=== PATIENT | male | born 1955 ===

== ENCOUNTER 2021-05-08 09:22 | Inpatient (IN) | payer SELFPAY ==
[2021-05-08] MEDS ORDERED: ALBUTEROL 2.5 MG/3 ML NEBU IH ONE (10:05)
[2021-05-08] MEDS ORDERED: predniSONE 20 MG TAB PO ONE (10:05)
[2021-05-08] MEDS ORDERED: IPRATROPIUM 0.02% NEBU 2.5 ML IH ONE (10:05)
--- NOTE | 2021-05-08 10:24 | Emergency Department Report ---
HPI - General Chief Complaint: Dyspnea/Respdistress Time Seen by Provider: 05/08/21 09:52 - HPI HPI: Room 36 Patient is a 65-year-old male present with a chief complaint of shortness of breath. The patient states for the past 2 weeks he had a cough has been nonproductive as well as shortness of breath and wheezing. Patient denies loss of sense of taste or smell. Patient denies history of fever or rhinorrhea. Patient states he has not been vaccinated against Covid. Patient denies any known sick contact ED Past Medical Hx - Past Medical History Previous Medical History?: Yes Additional medical history: COUGH - Surgical History Past Surgical History?: Yes Additional Surgical History: VASECTOMY, THYROIDECTOMY - Family History Family history: no significant - Social History Smoking Status: Current Every Day Smoker (1 pack/day) Substance Use Type: None (Denies illicit drug use) ED Review of Systems ROS: Stated complaint: COUGH WITH SOB Other details as noted in HPI Constitutional: denies: fever Eyes: denies: eye pain ENT: denies: throat pain Respiratory: cough, shortness of breath Cardiovascular: denies: chest pain Endocrine: no symptoms reported Gastrointestinal: denies: abdominal pain Genitourinary: denies: dysuria Musculoskeletal: myalgia Neurological: denies: headache Physical Exam - Physical Exam Vital Signs: Vital Signs 05/08/21 09:43 Temperature 98.2 F Pulse Rate 59 L Respiratory 24 Rate Blood Pressure 139/76 [Right] O2 Sat by Pulse 94 Oximetry Physical Exam: GENERAL: The patient is well-developed well-nourished male lying on stretcher not appearing to be in acute distress. [] HEENT: Normocephalic. Atraumatic. Extraocular motions are intact. Patient has moist mucous membranes. NECK: Supple. Trachea midline CHEST/LUNGS: Diminished. There is no respiratory distress noted. HEART/CARDIOVASCULAR: Regular. There is no tachycardia. There is no gallop rub or murmur. ABDOMEN: Abdomen is soft, nontender. Patient has normal bowel sounds. There is no abdominal distention. SKIN: There is no rash. There is no edema. There is no diaphoresis. NEURO: The patient is awake, alert, and oriented. The patient is cooperative. The patient has no focal neurologic deficits. The patient has normal speech. GCS 15 MUSCULOSKELETAL: There is no evidence of acute injury. ED Course Vital Signs 05/08/21 09:43 Temperature 98.2 F Pulse Rate 59 L Respiratory 24 Rate Blood Pressure 139/76 [Right] O2 Sat by Pulse 94 Oximetry ED Medical Decision Making - Lab Data Result diagrams: 05/08/21 11:11 05/08/21 11:11 Laboratory Tests 05/08/21 05/08/21 11:11 11:11 WBC 15.7 H RBC 4.88 Hgb 17.1 H Hct 51.0 H MCV 105 H MCH 35 H MCHC 34 RDW 13.0 L Plt Count 366 Lymph % (Auto) 13.0 L [place] % (Auto) 9.6 H Eos % (Auto) 0.6 Baso % (Auto) 0.9 Lymph # (Auto) 2.0 [place] # (Auto) 1.5 H Eos # (Auto) 0.1 Baso # (Auto) 0.1 Seg Neutrophils % 75.9 H Seg Neutrophils # 11.9 H Sodium 137 Potassium 3.7 Chloride 99.7 Carbon Dioxide 24 Anion Gap 17 BUN 7 L Creatinine 0.8 Estimated GFR > 60 BUN/Creatinine Ratio 9 Glucose 98 Calcium 9.1 - Radiology Data Radiology results: report reviewed (Chest x-ray), image reviewed (Chest x-ray) interpreted by me: Chest x-ray-left lung haziness, questionable left lower lobe infiltrate. No pneumothorax [address] [address] XRay Report Signed Patient: LINDY SLOAN MR#: [id number] : 1955 Acct:[id number] Age/Sex: 65 / M ADM Date: 05/08/21 Loc: ED Attending Dr: Ordering Physician: SONAL CHEUNG MD Date of Service: 05/08/21 Procedure(s): XR chest 1V ap Accession Number(s): [id number] cc: SONAL CHEUNG MD Fluoro Time In Minutes: CHEST 1 VIEW INDICATION / CLINICAL INFORMATION: Cough, shortness of breath. COMPARISON: None available. FINDINGS: SUPPORT DEVICES: None. HEART / MEDIASTINUM: No significant abnormality. LUNGS / PLEURA: No significant pulmonary or pleural abnormality. No pneumothorax. ADDITIONAL FINDINGS: No significant additional findings. IMPRESSION: 1. No acute findings. Signer Name: Chris Valentine MD Signed: 05/08/2021 10:34 AM Workstation Name: [id number] Transcribed By: SB Dictated By: CHRIS VALENTINE MD Electronically Authenticated By: CHRIS VALENTINE MD Signed Date/Time: 05/08/211033 DD/ 33 TD/TT: Print Cancel - Medical Decision Making Patient desatted to 93% on room air initially. Patient was placed on supplemental O2 was found to have an SPO2 between 91-93% on 3 L nasal cannula. Will admit the patient to the hospital for further treatment - Differential Diagnosis Reactive airway disease, COPD, asthma, pneumonia, Covid Critical care attestation.: If time is entered above; I have spent that time in minutes in the direct care of this critically ill patient, excluding procedure time. ED Disposition Clinical Impression: Pneumonia, Hypoxia, Suspected COVID-19 virus infection Disposition: ADMITTED INPATIENT Is pt being admited?: Yes Does the pt Need Aspirin: No Condition: Fair Instructions: Bacterial Pneumonia (ED) Referrals: PRIMARY CARE, [Primary Care Provider] - 3-5 Days Time of Disposition: 12:22 (Hospitalist called (Dr. Kumar))
--- NOTE | 2021-05-08 10:38 | XRay Report ---
CHEST 1 VIEW INDICATION / CLINICAL INFORMATION: Cough, shortness of breath. COMPARISON: None available. FINDINGS: SUPPORT DEVICES: None. HEART / MEDIASTINUM: No significant abnormality. LUNGS / PLEURA: No significant pulmonary or pleural abnormality. No pneumothorax. ADDITIONAL FINDINGS: No significant additional findings. IMPRESSION: 1. No acute findings. Signer Name: Chris Valentine MD Signed: 05/08/2021 10:34 AM Workstation Name: [id number]
[2021-05-08 11:38] LABS: BUN/Creatinine Ratio 9; Blood Urea Nitrogen 7 mg/dL (9-20); Calcium 9.1 mg/dL (8.4-10.2); Hemolysis Index 25
[2021-05-08 12:06] LABS: Basophils # (Auto) 0.1 K/mm3 (0.0-0.1); Basophils % (Auto) 0.9 % (0.0-1.8); Eosinophils # (Auto) 0.1 K/mm3 (0.0-0.4); Eosinophils % (Auto) 0.6 % (0.0-4.3); Hemoglobin 17.1 gm/dl (11.8-15.2); Mean Corpuscular HGB Conc 34 % (32-34); Mean Corpuscular Volume 105 fl (84-94); Monocytes # (Auto) 1.5 K/mm3 (0.0-0.8); Monocytes % (Auto) 9.6 % (0.0-7.3); Red Blood Count 4.88 M/mm3 (3.65-5.03)
[2021-05-08 12:08] LABS: Platelet Count 366 K/mm3 (140-440)
[2021-05-08] MEDS ORDERED: AZITHROMYCIN/NS 500 MG/250 ML 500 MG/250 ML BAG IV ONE (12:20)
[2021-05-08] MEDS ORDERED: cefTRIAXone/NS 1 GM/50 ML 1 GM/50 ML BAG IV ONE (12:20)
--- NOTE | 2021-05-08 12:33 | History and Physical Report ---
History of Present Illness Chief complaint: I cant breathe, and I have been coughing for weeks History of present illness: 65 YO Male with Nicotine Dependence presents to ED for evaluation. Patient reports "I feel sick and I am coughing". Patient states that he has experienced shortness of breath, dry cough, muscle aches, fatigue, weakness, subjective fever, decreased exercise tolerance over the past 2 weeks with worsening symptoms over the past 5 days. Patient transported to [facility] via private vehicle for further care and evaluation of the aforementioned symptoms. Patient seen and evaluated in the emergency department. All lab and imaging studies reviewed. Patient found to have a pulse oximetry of 88% on room air with exertion which is consistent with acute hypoxemic respiratory failure. Chest x- ray revealed bilateral pneumonia complicated by sepsis. Patient admitted to medical floor and initiated on sepsis protocol as well as coronavirus protocol. Patient knowledges fever. Patient denies chills, chest pain, palpitation, skin rash, recent ill contacts, or known exposure to COVID-19. No prior admission for review. No medication listed at time of mission for reconciliation. Patient is not vaccinated against COVID-19. Past History Past Medical History: other (See HPI) Past Surgical History: Other (Vasectomy, thyroidectomy) Social history: , smoking. denies: alcohol abuse, prescription drug abuse Family history: hypertension Medications and Allergies Allergies Allergy/AdvReac Type Severity Reaction Status Date / Time No Known Allergies Allergy Unverified 05/08/21 09:40 Home Medications Medication Instructions Recorded Confirmed Last Taken Type No Known Home Medications [No 05/08/21 05/08/21 Unknown History Reported Home Medications] Active Meds: Active Medications Azithromycin (Zithromax/Ns) 500 mg in 250 mls @ 250 mls/hr IV ONCE ONE; Protocol Stop: 05/08/21 13:19 Last Admin: 05/08/21 12:31 Dose: 250 mls/hr Documented by: Ceftriaxone Sodium (Rocephin/Ns 1 Gm/50 Ml) 1 gm in 50 mls @ 100 mls/hr IV ONCE ONE; Protocol Stop: 05/08/21 12:49 Last Admin: 05/08/21 12:31 Dose: 100 mls/hr Documented by: Review of Systems Constitutional: fever, fatigue, weakness, malaise Ears, nose, mouth and throat: no ear pain, no decreased hearing, no nose pain Cardiovascular: no chest pain, no orthopnea, no palpitations, no edema, no syncope Respiratory: cough, cough with sputum, shortness of breath, no excessive sputum, no hemoptysis, no dyspnea on exertion Gastrointestinal: no abdominal pain, no nausea, no vomiting, no diarrhea Genitourinary Male: no hematuria, no flank pain, no discharge, no urinary frequency, no urinary hesitancy Rectal: no pain, no incontinence, no bleeding Musculoskeletal: no neck stiffness, no neck pain, no low back pain, no shooting leg pain Integumentary: no rash, no pruritis, no redness, no sores, no wounds, no jaundice Neurological: no head injury, no paralysis, no parathesias, no numbness, no tingling, no seizures, no syncope Psychiatric: no anxiety, no memory loss, no change in sleep habits, no insomnia, no hypersomnia, no change in appetite, no change in libido, no suicidal ideation Endocrine: no cold intolerance, no polyphagia, no excessive thirst, no polydipsia, no polyuria, no excessive sweating Hematologic/Lymphatic: no easy bruising, no easy bleeding, no lymphedema Allergic/Immunologic: no urticaria, no allergic rhinitis Exam - Constitutional Vitals: Temp Pulse Resp BP Pulse Ox 98.9 F 114 H 18 128/63 93 05/08/21 12:01 05/08/21 12:01 05/08/21 12:01 05/08/21 12:01 05/08/21 12:01 General appearance: Present: mild distress - EENT Eyes: Present: PERRL ENT: hearing intact, clear oral mucosa - Neck Neck: Present: supple, normal ROM - Respiratory Respiratory effort: labored, accessory muscle use Respiratory: bilateral: diminished, rhonchi - Cardiovascular Heart Sounds: Present: S1 & S2. Absent: rub, click - Extremities Extremities: pulses symmetrical, No edema Peripheral Pulses: abnormal (Capillary refill greater than 3.5 seconds) - Abdominal General gastrointestinal: Present: soft, non-tender, non-distended, normal bowel sounds Male genitourinary: Present: normal - Integumentary Integumentary: Present: clear, warm, dry - Musculoskeletal Musculoskeletal: generalized weakness - Psychiatric Psychiatric: appropriate mood/affect, intact judgment & insight - Neurologic Neurologic: CNII-XII intact, moves all extremities Results - Labs CBC & Chem 7: 05/08/21 11:11 05/08/21 12:33 Labs: Abnormal lab results 05/08/21 05/08/21 Range/Units 11:11 11:11 WBC 15.7 H (4.5-11.0) K/mm3 Hgb 17.1 H (11.8-15.2) gm/dl Hct 51.0 H (35.5-45.6) % MCV 105 H (84-94) fl MCH 35 H (28-32) pg RDW 13.0 L (13.2-15.2) % Lymph % (Auto) 13.0 L (13.4-35.0) % [place] % (Auto) 9.6 H (0.0-7.3) % [place] # (Auto) 1.5 H (0.0-0.8) K/mm3 Seg Neutrophils % 75.9 H (40.0-70.0) % Seg Neutrophils # 11.9 H (1.8-7.7) K/mm3 BUN 7 L (9-20) mg/dL Assessment and Plan - Patient Problems (1) Sepsis Current Visit: Yes Status: Acute Plan to address problem: Sepsis protocol: Chest x-ray, CBC, urinalysis, IV antibiotic therapy, reyes pplemental oxygen, pulse oximetry, IV fluid resuscitation therapy, maintain mean arterial pressure greater than or equal to 65, serial lactic acid level, monitor fluid balance, blood culture. (2) Acute hypoxemic respiratory failure Current Visit: Yes Status: Acute Plan to address problem: Chest x-ray, supplemental oxygen, pulse oximetry, nebulizer therapy, supportive care. Will consider high flow supplemental oxygen if patient is unable to maintain pulse oximetry with supplemental oxygen via nasal cannula. (3) Nicotine dependence Current Visit: Yes Status: Acute Qualifiers: Nicotine product type: cigarettes Substance use status: in withdrawal Qualified Code(s): F17.213 - Nicotine dependence, cigarettes, with withdrawal Plan to address problem: Smoking cessation counseling, supportive care, behavior change counseling, +15 minutes. (4) COVID-19 vaccination not done Current Visit: Yes Status: Acute Plan to address problem: Patient counseled regarding COVID-19 vaccination. Patient acknowledges understanding instructions. (5) Pneumonia Current Visit: Yes Status: Acute Plan to address problem: Pneumonia protocol: Chest x-ray, CBC, CMP, supplemental oxygen, pulse oximetry, nebulizer therapy, IV antibiotic therapy. (6) Suspected COVID-19 virus infection Current Visit: Yes Status: Acute Plan to address problem: COVID-19 protocol: Supplemental oxygen, pulse oximetry, IV steroid therapy, IV antibiotic therapy, vitamin C therapy, vitamin D therapy, zinc therapy (7) DVT prophylaxis Current Visit: Yes Status: Acute Plan to address problem: SCD to bilateral lower extremities while in bed, prophylactic anticoagulation (8) Advance care planning Current Visit: Yes Status: Acute Plan to address problem: Disease education conducted, care plan discussed, diagnoses discussed, prognosis discussed, patient is full code. Patient informed of diagnosis and treatment care plan. Patient acknowledges understanding and agreement with care plan, +30 minutes.
[2021-05-08] MEDS ORDERED: ALBUTEROL 2.5 MG/3 ML NEBU IH PRN (12:51)
[2021-05-08] MEDS ORDERED: HYDROmorphone 1 MG/1 ML INJ IV PRN ×2 (12:51)
[2021-05-08] MEDS ORDERED: ONDANSETRON 4 MG/2 ML INJ IV PRN (12:51)
[2021-05-08] MEDS ORDERED: ACETAMINOPHEN 325 MG TAB PO PRN ×2 (12:51)
[2021-05-08] MEDS ORDERED: SODIUM CHLORIDE 0.9% 1000 ML IV SOLN IV ONE (13:00)
[2021-05-08] MEDS: oxyCODONE /ACETAMINOPHEN 5-325MG TAB PO PRN (16:06)
[2021-05-08] MEDS: guaiFENesin 100 MG/5 ML ORAL LIQD PO PRN (16:07)
[2021-05-08] MEDS ORDERED: traZODone 50 MG TAB PO ONE (21:14)
[2021-05-08] MEDS: methylPREDNISolone Sod Succinate 40 MG/1 ML INJ IV SCH (21:54)
[2021-05-08] MEDS: NICOTINE 21 MG/24 HR PATCH TD SCH (21:55)
[2021-05-08] MEDS: ZINC SULFATE 220 MG CAP PO SCH (21:55)
[2021-05-08] MEDS: ASCORBIC ACID 500 MG TAB PO SCH (21:55)
[2021-05-08] MEDS: FAMOTIDINE 10 MG TAB PO SCH (21:56)
[2021-05-08] MEDS: HEPARIN 5,000 UNIT/1 ML VIAL SUB-Q SCH ×2 (21:56→22:04)
[2021-05-09] MEDS: guaiFENesin 100 MG/5 ML ORAL LIQD PO PRN ×2 (01:26→22:01)
[2021-05-09] MEDS: methylPREDNISolone Sod Succinate 40 MG/1 ML INJ IV SCH ×3 (05:56→22:01)
[2021-05-09 08:18] LABS: Basophils # (Auto) 0.3 K/mm3 (0.0-0.1); Basophils % (Auto) 2.5 % (0.0-1.8); Hematocrit 46.6 % (35.5-45.6); Hemoglobin 15.3 gm/dl (11.8-15.2); Lymphocytes # (Auto) 0.9 K/mm3 (1.2-5.4); Lymphocytes % (Auto) 7.5 % (13.4-35.0); Mean Corpuscular HGB Conc 33 % (32-34); Mean Corpuscular Volume 105 fl (84-94); Monocytes # (Auto) 0.5 K/mm3 (0.0-0.8); Monocytes % (Auto) 4.4 % (0.0-7.3); Platelet Count 345 K/mm3 (140-440); Red Blood Count 4.45 M/mm3 (3.65-5.03); Red Cell Distribution Width 12.7 % (13.2-15.2)
[2021-05-09 08:39] LABS: Alanine Aminotransferase 11 units/L (7-56); Blood Urea Nitrogen 12 mg/dL (9-20); Hemolysis Index 16
[2021-05-09 08:46] LABS: BUN/Creatinine Ratio 17
[2021-05-09] MEDS: NICOTINE 21 MG/24 HR PATCH TD SCH (10:00)
[2021-05-09] MEDS: HEPARIN 5,000 UNIT/1 ML VIAL SUB-Q SCH ×3 (10:08→22:08)
[2021-05-09] MEDS: ZINC SULFATE 220 MG CAP PO SCH ×2 (10:08→22:01)
[2021-05-09] MEDS: CHOLECALCIFEROL (VIT D3) 1000 UNIT (25 mcg) TAB PO SCH (10:08)
[2021-05-09] MEDS: FAMOTIDINE 10 MG TAB PO SCH ×2 (10:09→22:01)
[2021-05-09] MEDS: ASCORBIC ACID 500 MG TAB PO SCH ×2 (10:10→22:01)
--- NOTE | 2021-05-09 12:23 | Progress Note ---
Assessment and Plan Assessment and Plan - Patient Problems (1) Sepsis Current Visit: Yes Status: Acute Plan to address problem: Sepsis protocol: Chest x-ray, CBC, urinalysis, IV antibiotic therapy, supplemental oxygen, pulse oximetry, IV fluid resuscitation therapy, maintain mean arterial pressure greater than or equal to 65, serial lactic acid level, monitor fluid balance, blood culture. (2) Acute hypoxemic respiratory failure Current Visit: Yes Status: Acute Plan to address problem: Chest x-ray, supplemental oxygen, pulse oximetry, nebulizer therapy, supportive care. Will consider high flow supplemental oxygen if patient is unable to maintain pulse oximetry with supplemental oxygen via nasal cannula. I (3) Pneumonia Current Visit: Yes Status: Acute Plan to address problem: Pneumonia protocol: Chest x-ray, CBC, CMP, supplemental oxygen, pulse oximetry, nebulizer therapy, IV antibiotic therapy. (4) Nicotine dependence Current Visit: Yes Status: Acute Qualifiers: Nicotine product type: cigarettes Substance use status: in withdrawal Qualified Code(s): F17.213 - Nicotine dependence, cigarettes, with withdrawal Plan to address problem: Smoking cessation counseling, supportive care, behavior change counseling, +15 minutes. (5) COVID-19 vaccination not done Current Visit: Yes Status: Acute Plan to address problem: Covid test done today but pending (6) Suspected COVID-19 virus infection Current Visit: Yes Status: Acute Plan to address problem: Covid test done today but pending On supplemental oxygen and IV Decadron Remdesivir if positive (7) DVT prophylaxis Current Visit: Yes Status: Acute Plan to address problem: SCD to bilateral lower extremities while in bed, prophylactic anticoagulation Subjective Date of service: 05/09/21 Principal diagnosis: Bilateral pneumonia Interval history: 65 YO Male with Nicotine Dependence presents to ED for evaluation. Patient reports "I feel sick and I am coughing". Patient states that he has experienced shortness of breath, dry cough, muscle aches, fatigue, weakness, subjective fever, decreased exercise tolerance over the past 2 weeks with worsening symptoms over the past 5 days. Patient transported to [facility] via private vehicle for further care and evaluation of the aforementioned symptoms. Patient seen and evaluated in the emergency department. All lab and imaging studies reviewed. Patient found to have a pulse oximetry of 88% on room air with exertion which is consistent with acute hypoxemic respiratory failure. Chest x- ray revealed bilateral pneumonia complicated by sepsis. Patient admitted to medical floor and initiated on sepsis protocol as well as coronavirus protocol. Patient knowledges fever. Patient denies chills, chest pain, palpitation, skin rash, recent ill contacts, or known exposure to COVID-19. No prior admission for review. No medication listed at time of mission for reconciliation. Patient is not vaccinated against COVID-19. 05/09/2021 Patient still wheezing and short of breath On 2 L nasal cannula oxygen Covid test pending Objective - Constitutional Vitals: Vital Signs - 12hr 05/09/21 05/09/21 05/09/21 01:33 02:00 05:55 Temperature 98.0 F Pulse Rate 83 Pulse Rate [ 107 H Anterior Bilateral Throughout] Respiratory 19 Rate Respiratory 17 Rate [Anterior Bilateral Throughout] Blood Pressure 118/64 O2 Sat by Pulse 95 95 Oximetry General appearance: Present: mild distress, well-nourished - EENT Eyes: PERRL, EOM intact ENT: hearing intact, clear oral mucosa Ears: bilateral: normal - Neck Neck: supple, normal ROM - Respiratory Respiratory effort: normal Respiratory: bilateral: CTA, rhonchi, wheezing - Breasts Breasts: normal - Cardiovascular Heart rate: 78 Rhythm: regular Heart Sounds: Present: S1 & S2. Absent: gallop, rub Extremities: pulses intact, No edema, normal color, Full ROM - Gastrointestinal General gastrointestinal: Present: soft, non-tender, non-distended, normal bowel sounds - Genitourinary Male genitourinary: normal - Integumentary Integumentary: clear, warm, dry - Musculoskeletal Musculoskeletal: 1, strength equal bilaterally - Neurologic Neurologic: moves all extremities - Psychiatric Psychiatric: memory intact, appropriate mood/affect, intact judgment & insight - Labs CBC & Chem 7: 05/09/21 07:49 05/09/21 07:49 Labs: Abnormal lab results 05/08/21 05/08/21 05/08/21 Range/Units 12:33 12:33 12:33 WBC (4.5-11.0) K/mm3 Hgb (11.8-15.2) gm/dl Hct (35.5-45.6) % MCV (84-94) fl MCH (28-32) pg RDW (13.2-15.2) % Lymph % (Auto) (13.4-35.0) % Baso % (Auto) (0.0-1.8) % Lymph # (Auto) (1.2-5.4) K/mm3 Baso # (Auto) (0.0-0.1) K/mm3 Seg Neutrophils % (40.0-70.0) % Seg Neutrophils # (1.8-7.7) K/mm3 D-Dimer 374.24 H (0-234) ng/mlDDU Creatinine (0.8-1.3) mg/dL Glucose (75-100) mg/dL Ferritin 445.8 H (30.0-300.0) ng/mL Lactate Dehydrogenase 210 H (91-180) units/L C-Reactive Protein 3.00 H (0.00-1.30) mg/dL 05/09/21 05/09/21 Range/Units 07:49 07:49 WBC 11.3 H (4.5-11.0) K/mm3 Hgb 15.3 H (11.8-15.2) gm/dl Hct 46.6 H (35.5-45.6) % MCV 105 H (84-94) fl MCH 34 H (28-32) pg RDW 12.7 L (13.2-15.2) % Lymph % (Auto) 7.5 L (13.4-35.0) % Baso % (Auto) 2.5 H (0.0-1.8) % Lymph # (Auto) 0.9 L (1.2-5.4) K/mm3 Baso # (Auto) 0.3 H (0.0-0.1) K/mm3 Seg Neutrophils % 85.6 H (40.0-70.0) % Seg Neutrophils # 9.7 H (1.8-7.7) K/mm3 D-Dimer (0-234) ng/mlDDU Creatinine 0.7 L (0.8-1.3) mg/dL Glucose 147 H (75-100) mg/dL Ferritin (30.0-300.0) ng/mL Lactate Dehydrogenase (91-180) units/L C-Reactive Protein (0.00-1.30) mg/dL
[2021-05-09] MEDS: ALBUTEROL 8.5 GM MDI INHALATION IH PRN (12:56)
[2021-05-09] MEDS: AZITHROMYCIN/NS 500 MG/250 ML 500 MG/250 ML BAG IV SCH (14:12)
[2021-05-09] MEDS: cefTRIAXone/NS 2 GM/100 ML 2 GM/100 ML BAG IV SCH (14:16)
[2021-05-09] MEDS: oxyCODONE /ACETAMINOPHEN 5-325MG TAB PO PRN (22:20)
[2021-05-10] MEDS: guaiFENesin 100 MG/5 ML ORAL LIQD PO PRN (06:29)
[2021-05-10] MEDS: methylPREDNISolone Sod Succinate 40 MG/1 ML INJ IV SCH ×3 (06:30→22:27)
[2021-05-10] MEDS: NICOTINE 21 MG/24 HR PATCH TD SCH (10:45)
[2021-05-10] MEDS: ZINC SULFATE 220 MG CAP PO SCH ×2 (10:45→22:27)
[2021-05-10] MEDS: ASCORBIC ACID 500 MG TAB PO SCH ×2 (10:45→22:27)
[2021-05-10] MEDS: FAMOTIDINE 10 MG TAB PO SCH ×2 (10:45→22:27)
[2021-05-10] MEDS: CHOLECALCIFEROL (VIT D3) 1000 UNIT (25 mcg) TAB PO SCH (10:45)
[2021-05-10] MEDS: HEPARIN 5,000 UNIT/1 ML VIAL SUB-Q SCH ×2 (10:46→22:28)
--- NOTE | 2021-05-10 10:51 | Progress Note ---
Assessment and Plan Assessment and Plan - Patient Problems (1) Sepsis Current Visit: Yes Status: Acute Plan to address problem: Sepsis protocol: Chest x-ray, CBC, urinalysis, IV antibiotic therapy, supplemental oxygen, pulse oximetry, IV fluid resuscitation therapy, maintain mean arterial pressure greater than or equal to 65, serial lactic acid level, monitor fluid balance, blood culture. (2) Acute hypoxemic respiratory failure Current Visit: Yes Status: Acute Plan to address problem: Patient is on 4 L nasal cannula oxygen till this morning a.m. Now on room air and oxygen saturation is 94. We will recheck today continuously and if on room air we will discharge him tomorrow (3) Pneumonia Current Visit: Yes Status: Acute Plan to address problem: Procalcitonin requested Patient to continue IV antibiotics, IV steroids and started on remdesivir (4) Nicotine dependence Current Visit: Yes Status: Acute Qualifiers: Nicotine product type: cigarettes Substance use status: in withdrawal Mateo lified Code(s): F17.213 - Nicotine dependence, cigarettes, with withdrawal Plan to address problem: Smoking cessation counseling, NicoDerm patch started (5) COVID-19 vaccination not done Current Visit: Yes Status: Acute Plan to address problem: Covid test positive Patient started on IV remdesivir (6) Suspected COVID-19 virus infection Current Visit: Yes Status: Acute Plan to address problem: Covid test is positive Patient started on remdesivir (7) DVT prophylaxis Current Visit: Yes Status: Acute Plan to address problem: SCD to bilateral lower extremities while in bed, prophylactic anticoagulation Subjective Date of service: 05/10/21 Principal diagnosis: Bilateral pneumonia Interval history: 65 YO Male with Nicotine Dependence presents to ED for evaluation. Patient rep orts "I feel sick and I am coughing". Patient states that he has experienced shortness of breath, dry cough, muscle aches, fatigue, weakness, subjective fever, decreased exercise tolerance over the past 2 weeks with worsening symptoms over the past 5 days. Patient transported to [facility] via private vehicle for further care and evaluation of the aforementioned symptoms. Patient seen and evaluated in the emergency department. All lab and imaging studies reviewed. Patient found to have a pulse oximetry of 88% on room air with exertion which is consistent with acute hypoxemic respiratory failure. Chest x- ray revealed bilateral pneumonia complicated by sepsis. Patient admitted to medical floor and initiated on sepsis protocol as well as coronavirus protocol. Patient knowledges fever. Patient denies chills, chest pain, palpitation, skin rash, recent ill contacts, or known exposure to COVID-19. No prior admission for review. No medication listed at time of mission for reconciliation. Patient is not vaccinated against COVID-19. 05/09/2021 Patient still wheezing and short of breath On 4 L nasal cannula oxygen Covid test pending 05/10/2021 Patient still coughing and wheezing Patient on room air and oxygen saturation is 94 Asked the nurse to check again on room air within couple of hours. Patient to be kept on room air if tolerated Patient on steroids and IV remdesivir started If patient does well on room air patient to be discharged tomorrow on oral Decadron and antibiotics if necessary depending on the procalcitonin level Objective - Constitutional Vitals: Vital Signs - 12hr 05/09/21 05/10/21 05/10/21 23:35 02:00 05:43 Temperature 97.7 F 98.3 F Pulse Rate 78 88 Respiratory 20 17 20 Rate Blood Pressure 136/47 125/53 O2 Sat by Pulse 98 97 95 Oximetry 05/10/21 08:45 Temperature Pulse Rate Respiratory Rate Blood Pressure O2 Sat by Pulse 95 Oximetry General appearance: Present: no acute distress, well-nourished - EENT Eyes: PERRL, EOM intact ENT: hearing intact, clear oral mucosa Ears: bilateral: normal - Neck Neck: supple, normal ROM - Respiratory Respiratory effort: normal Respiratory: bilateral: CTA, rhonchi, wheezing - Breasts Breasts: normal - Cardiovascular Heart rate: 78 Rhythm: regular Heart Sounds: Present: S1 & S2. Absent: gallop, rub Extremities: pulses intact, No edema, normal color, Full ROM - Gastrointestinal General gastrointestinal: Present: soft, non-tender, non-distended, normal bowel sounds - Genitourinary Male genitourinary: normal - Integumentary Integumentary: clear, warm, dry - Musculoskeletal Musculoskeletal: 1, strength equal bilaterally - Neurologic Neurologic: moves all extremities - Psychiatric Psychiatric: memory intact, appropriate mood/affect, intact judgment & insight - Allied health notes Allied health notes reviewed: nursing, case management - Labs CBC & Chem 7: 05/09/21 07:49 05/09/21 07:49 Labs: Abnormal lab results 05/09/21 Range/Units Unknown Coronavirus (PCR) Positive A (Negative)
[2021-05-10] MEDS ORDERED: guaiFENesin/CODEINE 100-10MG ORAL LIQD 5 ML PO PRN (12:13)
[2021-05-10] MEDS ORDERED: REMDESIVIR(see order set) IV SCH (13:00)
[2021-05-10] MEDS: cefTRIAXone/NS 2 GM/100 ML 2 GM/100 ML BAG IV SCH (13:21)
[2021-05-10] MEDS ORDERED: REMDESIVIR 200 MG in SODIUM CHLORIDE 0.9% 250ML 250 ML IV ONE (14:00)
[2021-05-10] MEDS: AZITHROMYCIN/NS 500 MG/250 ML 500 MG/250 ML BAG IV SCH (14:19)
[2021-05-10] MEDS ORDERED: SODIUM CHLORIDE 0.9% 50 ML IVPB IV SCH (14:30)
[2021-05-10] MEDS: oxyCODONE /ACETAMINOPHEN 5-325MG TAB PO PRN (22:35)
[2021-05-11] MEDS: methylPREDNISolone Sod Succinate 40 MG/1 ML INJ IV SCH ×2 (05:05→16:09)
[2021-05-11 07:32] LABS: Hematocrit 43.9 % (35.5-45.6); Hemoglobin 14.4 gm/dl (11.8-15.2); Lymphocytes # (Auto) 0.8 K/mm3 (1.2-5.4); Lymphocytes % (Auto) 7.1 % (13.4-35.0); Mean Corpuscular HGB Conc 33 % (32-34); Mean Corpuscular Volume 105 fl (84-94); Monocytes # (Auto) 0.5 K/mm3 (0.0-0.8); Monocytes % (Auto) 4.7 % (0.0-7.3); Platelet Count 322 K/mm3 (140-440); Red Blood Count 4.18 M/mm3 (3.65-5.03); Red Cell Distribution Width 13.2 % (13.2-15.2)
[2021-05-11 07:54] LABS: Alanine Aminotransferase 31 units/L (7-56); Albumin 3.7 g/dL (3.9-5); Blood Urea Nitrogen 18 mg/dL (9-20); Calcium 8.5 mg/dL (8.4-10.2); Hemolysis Index 14
[2021-05-11 07:55] LABS: BUN/Creatinine Ratio 26
[2021-05-11] MEDS: FAMOTIDINE 10 MG TAB PO SCH (10:05)
[2021-05-11] MEDS: CHOLECALCIFEROL (VIT D3) 1000 UNIT (25 mcg) TAB PO SCH (10:05)
[2021-05-11] MEDS: ZINC SULFATE 220 MG CAP PO SCH (10:06)
[2021-05-11] MEDS: ASCORBIC ACID 500 MG TAB PO SCH (10:06)
[2021-05-11] MEDS: NICOTINE 21 MG/24 HR PATCH TD SCH (10:06)
[2021-05-11] MEDS: HEPARIN 5,000 UNIT/1 ML VIAL SUB-Q SCH (10:06)
[2021-05-11] MEDS: ALBUTEROL 8.5 GM MDI INHALATION IH PRN (12:42)
[2021-05-11] MEDS: cefTRIAXone/NS 2 GM/100 ML 2 GM/100 ML BAG IV SCH (13:00)
[2021-05-11] MEDS: AZITHROMYCIN/NS 500 MG/250 ML 500 MG/250 ML BAG IV SCH (13:00)
[2021-05-11 16:53] VITALS: BP 139/75
[2021-05-11] MEDS ORDERED: REMDESIVIR 100 MG in SODIUM CHLORIDE 0.9% 250ML 250 ML IV SCH (21:00)
== END 2021-05-11 17:05 | disposition home or self-care (01) | DRG 871 ==
LOC: ED 09:22 → 3A 12:51
PROVIDERS: ADMIT Internal Medicine; ATTEND Internal Medicine
PROC: XW033E5 Introduction of Remdesivir Anti-infective into Peripheral Vein, Percutaneous Approach, New Technology Group 5 (ICD-10-PCS; principal; 2021-05-10)
DX: A41.9 Sepsis, unspecified organism (principal); U07.1 COVID-19; J96.01 Acute respiratory failure with hypoxia; J12.82 Pneumonia due to coronavirus disease 2019; F17.213 Nicotine dependence, cigarettes, with withdrawal; Z82.49 Family history of ischemic heart disease and other diseases of the circulatory system
CPT/HCPCS: 36415; 71045; 80048; 80053; 82728; 82947; 83615; 84145; 85025; 85379; 86140; 87040; 94640; 94644; 94760; 99406; G0378; J0456; J0696; J1644; J2920; J7050; J7512; U0003

== ENCOUNTER 2021-05-13 17:18 | Emergency (ER) | payer SELFPAY ==
[2021-05-13] MEDS ORDERED: oxyCODONE /ACETAMINOPHEN 5-325MG TAB PO ONE (17:49)
[2021-05-13] MEDS ORDERED: methylPREDNISolone Sod Succinate 125 MG/2 ML INJ IM ONE (17:49)
[2021-05-13] MEDS ORDERED: KETOROLAC 30 MG/1 ML INJ IM ONE (17:49)
--- NOTE | 2021-05-13 18:31 | Emergency Department Report ---
ED Extremity Problem HPI - General Chief complaint: Extremity Problem,Nontraumatic Stated complaint: RIGHT LEG PAIN Time Seen by Provider: 05/13/21 17:38 Source: patient Mode of arrival: Ambulatory Limitations: No Limitations - History of Present Illness Initial comments: This pleasant 65-year-old male presents emerged department chief complaint of pain in the right upper buttocks that radiates into the back of the right leg that has been present over the past few days. He denies any injuries. Denies any saddle anesthesia, urinary or bowel incontinence, urinary retention, fever, chills, night sweats, headache, dizziness, or vision, nausea, vomit, diarrhea, chest pain, shortness of breath, weakness or any other associated symptoms. He reports pain is aggravated with certain movements specifically extending the back and mildly relieved with flexion. Severity scale (0 -10): 10 - Related Data Previous Rx's Medication Instructions Recorded Last Taken Type Albuterol Mdi (or & Nicu Only) 2 puff IH QID PRN #8.5 gram 05/11/21 Unknown Rx [ProAir HFA Inhaler] dexAMETHasone [Decadron] 8 mg PO QDAY #8 tablet 05/11/21 Unknown Rx levoFLOXacin [Levaquin] 750 mg PO QDAY #8 tablet 05/11/21 Unknown Rx methOCARBAMOL [Robaxin TAB] 0 mg PO Q6HR #20 tablet 05/13/21 Unknown Rx methylPREDNISolone [Medrol 4MG 4 mg PO ONCE #1 tab.ds.pk 05/13/21 Unknown Rx DOSEPAK (21 tabs)] traMADoL [Ultram 50 MG tab] 50 mg PO Q6HR PRN #12 tablet 05/13/21 Unknown Rx Allergies Allergy/AdvReac Type Severity Reaction Status Date / Time No Known Allergies Allergy Unverified 05/08/21 09:40 ED Review of Systems ROS: Stated complaint: RIGHT LEG PAIN Other details as noted in HPI Comment: All other systems reviewed and negative Constitutional: denies: chills, fever Eyes: denies: eye pain, eye discharge, vision change ENT: denies: ear pain, throat pain Respiratory: denies: cough, shortness of breath, wheezing Cardiovascular: denies: chest pain, palpitations Endocrine: no symptoms reported Gastrointestinal: denies: abdominal pain, nausea, diarrhea Genitourinary: denies: urgency, dysuria Musculoskeletal: as per HPI, back pain, myalgia. denies: joint swelling, arthralgia Skin: denies: rash, lesions Neurological: denies: headache, weakness, paresthesias Psychiatric: denies: anxiety, depression Hematological/Lymphatic: denies: easy bleeding, easy bruising ED Past Medical Hx - Past Medical History Additional medical history: COUGH - Surgical History Additional Surgical History: VASECTOMY, THYROIDECTOMY - Social History Smoking Status: Current Every Day Smoker - Medications Home Medications: Home Medications Medication Instructions Recorded Confirmed Last Taken Type Albuterol Mdi (or & Nicu Only) 2 puff IH QID PRN #8.5 gram 05/11/21 Unknown Rx [ProAir HFA Inhaler] dexAMETHasone [Decadron] 8 mg PO QDAY #8 tablet 05/11/21 Unknown Rx levoFLOXacin [Levaquin] 750 mg PO QDAY #8 tablet 05/11/21 Unknown Rx methOCARBAMOL [Robaxin TAB] 0 mg PO Q6HR #20 tablet 05/13/21 Unknown Rx methylPREDNISolone [Medrol 4MG 4 mg PO ONCE #1 tab.ds.pk 05/13/21 Unknown Rx DOSEPAK (21 tabs)] traMADoL [Ultram 50 MG tab] 50 mg PO Q6HR PRN #12 tablet 05/13/21 Unknown Rx ED Physical Exam - General Limitations: No Limitations General appearance: alert, in no apparent distress - Head Head exam: Present: atraumatic, normocephalic - Eye Eye exam: Present: normal appearance, PERRL, EOMI Pupils: Present: normal accommodation - ENT ENT exam: Present: normal exam, mucous membranes moist - Neck Neck exam: Present: normal inspection, full ROM. Absent: tenderness, men ingismus - Respiratory Respiratory exam: Present: normal lung sounds bilaterally. Absent: respiratory distress, wheezes, rales, rhonchi, stridor - Cardiovascular Cardiovascular Exam: Present: regular rate, normal rhythm, normal heart sounds. Absent: systolic murmur, diastolic murmur, rubs, gallop - GI/Abdominal GI/Abdominal exam: Present: soft, normal bowel sounds. Absent: distended, tenderness, guarding, rebound, rigid, pulsatile mass - Rectal Rectal exam: Present: deferred - Extremities Exam Extremities exam: Present: normal inspection, full ROM, tenderness (Tenderness to the right upper buttocks. No posterior calf tenderness, normal DP and PT pulses bilaterally. Flexion range of motion of the ankle, knee, hip without pain.). Absent: calf tenderness - Back Exam Back exam: Present: normal inspection, full ROM, tenderness (Tenderness palpation in the right upper buttocks. Negative straight leg raise. Normal deep tendon reflexes to the bilateral Achilles and patellar 2+ bilaterally.), muscle spasm - Neurological Exam Neurological exam: Present: alert, oriented X3, CN II-XII intact, normal gait - Psychiatric Psychiatric exam: Present: normal affect, normal mood - Skin Skin exam: Present: warm, dry, intact, normal color. Absent: rash ED Medical Decision Making - Medical Decision Making Patient presented emerged department chief complaint of right-sided back pain rating down the back of the right leg. Patient denies injuries. He denies any blood thinner use making spinal epidural hematoma or fracture unlikely. He denies any IV drug use or fever making spinal epidural abscess unlikely. He denies any saddle anesthesia, urinary or bowel incontinence, urinary retention making cauda equina syndrome or conus medullaris syndrome unlikely. He was given an injection of steroids and Toradol as well as a dose of Percocet and reports feeling much better. He is walking around the ER and overall his symptoms have significantly improved. I will give him spine doctor follow-up and return precautions for any change or worsening symptoms. He verbalized understand the diagnosis, treatment plan and follow-up instructions all of his questions were answered. - Differential Diagnosis Strain, spasm, HNP Critical care attestation.: If time is entered above; I have spent that time in minutes in the direct care of this critically ill patient, excluding procedure time. ED Disposition Clinical Impression: Acute low back pain Qualifiers: Back pain laterality: right Sciatica presence: with sciatica Sciatica laterality: sciatica of right side Qualified Code(s): M54.41 - Lumbago with s ciatica, right side Disposition: 01 HOME / SELF CARE / HOMELESS Is pt being admited?: No Condition: Stable Instructions: Acute Back Pain, Adult Prescriptions: methylPREDNISolone [Medrol 4MG DOSEPAK (21 tabs)] 4 mg PO ONCE #1 tab.ds.pk methOCARBAMOL [Robaxin TAB] 0 mg PO Q6HR #20 tablet traMADoL [Ultram 50 MG tab] 50 mg PO Q6HR PRN #12 tablet PRN Reason: Pain Referrals: PRIMARY CARE, [Primary Care Provider] - 3-5 Days [facility] [Provider Group] - 3-5 Days Time of Disposition: 18:32
[2021-05-13 18:43] VITALS: BP 116/78
== END 2021-05-13 18:43 | disposition home or self-care (01) ==
LOC: ED 17:18
DX: M54.50 Low back pain, unspecified (principal); Z98.890 Other specified postprocedural states; Z79.899 Other long term (current) drug therapy
CPT/HCPCS: 96372; 99282; J1885; J2930